=== PATIENT | female | born 1955 | race Caucasian/White ===

== ENCOUNTER → 2018-05-22 | Outpatient (CLI) | payer BC ==
--- NOTE | 2018-05-25 14:13 | RAD ---
DATE: May 22, 2018 EXAM: MAMMO BEATRIZ SCREENING BILATERAL HISTORY: Screening study. COMPARISON: March 14, 2015 performed at [facility] 2-D digital mammographic views of both breasts were performed in the CC and MLO projections. 3-D digital tomosynthesis images of both breasts were performed in the CC and MLO projections and reviewed on a computer workstation. This study was interpreted with the benefit of Computerized Aided Detection (CAD). FINDINGS: Breast Density: SCATTERED The breast parenchyma shows scattered fibroglandular densities. Breast parenchyma level B.. There are no dominant suspicious masses, suspicious microcalcifications or evidence of architectural distortion. Nodularity of both breasts is stable. IMPRESSION: No mammographic indicators for malignancy. BI-RADS CATEGORY: 2 BENIGN FINDING RECOMMENDED FOLLOW-UP: 12M 12 MONTH FOLLOW-UP PQRS compliance statement: Patient information was entered into a reminder system with a target due date May 23, 2019 for the next mammogram. Mammography is a sensitive method for finding small breast cancers, but it does not detect them all and is not a substitute for careful clinical examination. A negative mammogram does not negate a clinically suspicious finding and should not result in delay in biopsying a clinically suspicious abnormality. "Our facility is accredited by the [employer] Mammography Program." The patient's breast density may affect the ability of mammography to detect breast cancer. There are 4 categories of breast density, A, B, C and D. Breast density A means that most of the breast tissue is replaced with adipose tissue and therefore is not dense. Breast density B means that the breast tissue is mildly dense and scattered. Breast density C means that the breast tissue is heterogeneously dense. Breast density D means that the breast tissue is very dense. Breast densities especially C and D may decrease the sensitivity of mammography to detect breast cancer. Therefore, the patient may benefit from 3-D breast mammography (3D breast tomography) as a part of their screening mammogram. Insurance may or may not pay for this additional imaging. The patient's breast density based on today's mammogram is category B..
== END | disposition home or self-care (01) ==
LOC: MAMMO 09:40
PROVIDERS: ATTEND Physician Assistant Surgical
DX: Z12.31 Encounter for screening mammogram for malignant neoplasm of breast (principal)
CPT/HCPCS: 77063; 77067

== ENCOUNTER 2021-03-06 10:02 | Day surgery (SDC) | payer BC ==
[~2021-03-06] VITALS: Ht 167.6 cm; Wt 88.0 kg
[~2021-03-06 10:02] MED LIST: ATOR40TA59 PO; BUPIVACAINE MPF 0.25% 30 ML VIAL. ONE; CALC500T30 PO; CHOL500050 PO; CITA40TA6 PO; CYAN25008 PO; ESZO2TAB21 PO; FENO160T PO; GABA300C18 PO; HYDROmorphone 2 MG/ML VIAL IVP PRN; IV RINGERS,LACTATED 1000ML 1,000 ML IV SCH; LOSA100T14 PO; MORPHINE SULFATE 2 MG/ML INJ. IVP PRN; MULT-496 PO; OMEP40CA7 PO; PHEN37.53 PO; POTA-121 PO; PROCHLORPERAZINE 10 MG/2 ML VIAL. IVP PRN; TRIA1TAB5 PO; fentaNYL PF VIAL 100 MCG/2 ML VIAL IVP PRN
[2021-03-06 10:33] VITALS: BP 152/87
--- NOTE | 2021-03-06 10:34 | PDOC1 ---
History and Physical Date of Admission Date of Admission DATE: 03/06/21 TIME: 10:33 Identification/Chief Complaint Chief Complaint Right foot lateral bunion Source Source: Patient History of Present Illness History of Present Illness Ms Rizo is a 65yo female w/ PMHx HTN, HLD, GERD with strictures s/p esophageal dilation in 2017 who presents to outpatient surgery for right foot pain with bunion that has been bothersome. Here to have bunionectomy. No recent travel or sick contacts. No shortness of breath or chest pain. 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 She did fracture her right ankle earlier this year and had nonoperative treatment and has recovered well from that. Pfizer COVID 19 vaccines: 06/07/20, , and 12/31/20 Past Surgical History Past Surgical History: Hysterectomy (TAHBSO), Other (left foot pinning) Family History Family History reviewed Family History: No Significant Social History Smoke: No ALCOHOL: none Drugs: None Current Medications Current Medications Current Medications Fentanyl Citrate (Fentanyl 2ml Vial) 25 mcg PRN Q5MIN PRN IVP MILD PAIN 1-3; Start 03/06/21 at 06:00; Stop 03/06/21 at 20:00 Fentanyl Citrate (Fentanyl 2ml Vial) 50 mcg PRN Q5MIN PRN IVP MODERATE PAIN 4- 6; Start 03/06/21 at 06:00; Stop 03/06/21 at 20:00 Morphine Sulfate (Morphine Sulfate) 1 mg PRN Q10MIN PRN IVP SEVERE PAIN 7-10; Start 03/06/21 at 06:00; Stop 03/06/21 at 20:00 Ringer's Solution 1,000 ml @ 30 mls/hr Q24H IV ; Start 03/06/21 at 06:00; Stop 03/06/21 at 17:59 Hydromorphone HCl (Dilaudid) 0.5 mg PRN Q10MIN PRN IVP SEVERE PAIN 7-10, 2nd CHOICE; Start 03/06/21 at 06:00; Stop 03/06/21 at 20:00 Prochlorperazine Edisylate (Compazine) 5 mg PACU PRN PRN IVP NAUSEA, MRX1; Start 03/06/21 at 06:00; Stop 03/06/21 at 20:00 Cefazolin Sodium/ Dextrose 50 ml @ 100 mls/hr 1X PREOP PRN IV PRIOR TO PROCEDURE; Start 03/06/21 at 06:00; Stop 03/06/21 at 18:00 Bupivacaine HCl (Sensorcaine Mpf 0.25%) 30 ml STK-MED ONCE .ROUTE ; Start 03/06/21 at 09:26; Stop 03/06/21 at 09:27; Status DC Active Scripts Active Reported Vitamin B12 (Cyanocobalamin (Vitamin B-12)) 2,500 Mcg Tablet 2,500 Mcg PO DAILY Vitamin D3 (Cholecalciferol (Vitamin D3)) 1,250 Mcg Capsule 1,250 Mcg PO WEEKLY Phentermine Hcl 37.5 Mg Capsule 37.5 Mg PO DAILY Calcium (Calcium Carbonate) 500 Mg Tablet 500 Mg PO DAILY Daily Value (Multivitamin) 1 Each Tablet 1 Each PO DAILY Citalopram Hbr (Citalopram Hydrobromide) 40 Mg Tablet 40 Mg PO DAILY Triamterene-Hctz 75-50 Mg Tab (Triamterene/Hydrochlorothiazid) 1 Each Tablet 1 Tab PO DAILY Atorvastatin Calcium 40 Mg Tablet 40 Mg PO HS Losartan Potassium 100 Mg Tablet 100 Mg PO DAILY Klor-Con M20 (Potassium Chloride) 20 Meq Tab.er.prt 20 Meq PO DAILY Fenofibrate 160 Mg Tablet 160 Mg PO DAILY Omeprazole 40 Mg Capsule.dr 40 Mg PO PRN PRN Gabapentin (Gabapentin) 300 Mg Capsule 300 Mg PO TID Lunesta (Eszopiclone) 2 Mg Tablet 2 Mg PO HS PRN Allergies Allergies: Coded Allergies: No Known Drug Allergies (Unverified , 03/06/21) ROS General: No: Chills, Night Sweats, Fatigue, Malaise, Appetite, Other PSYCHOLOGICAL ROS: No: Anxiety, Behavioral Disorder, Concentration difficultie, Decreased libido, Depression, Disorientation, Hallucinations, Hostility, Irritablity, Memory difficulties, Mood Swings, Obsessive thoughts, Physical abuse, Sexual abuse, Sleep disturbances, Suicidal ideation, Other Eyes: No Blurry vision, No Decreased vision, No Double vision, No Dry eyes, No Excessive tearing, No Eye Pain, No Itchy Eyes, No Loss of vision, No Photophobia, No Scotomata, No Uses contacts, No Uses glasses, No Other HEENT: No: Heacaches, Visual Changes, Hearing change, Nasal congestion, Nasal discharge, Oral lesions, Sinus pain, Sore Throat, Epistaxis, Sneezing, Snoring, Tinnitus, Vertigo, Vocal changes, Other ALLERGY AND IMMUNOLOGY: No: Hives, Insect Bite Sensitivity, Itchy/Watery Eyes, Nasal Congestion, Post Nasal Drip, Seasonal Allergies, Other Hematological and Lymphatic: No: Bleeding Problems, Blood Clots, Blood Transfusions, Brusing, Night Sweats, Pallor, Swollen Lymph Nodes, Other ENDOCRINE: No: Breast Changes, Galactorrhea, Hair Pattern Changes, Hot Flashes, Malaise/lethargy, Mood Swings, Palpitations, Polydipsia/polyuria, Skin Changes, Temperature Intolerance, Unexpected Weight Changes, Other Breast: No New/Changing Breast Lumps, No Nipple changes, No Nipple discharge, No Other Respiratory: No: Cough, Hemoptysis, Orthopnea, Pleuritic Pain, Shortness of breath, SOB with excertion, Sputum Changes, Stridor, Tachypnea, Wheezing, Other Cardiovascular: No Chest Pain, No Palpitations, No Orthopnea, No Paroxysmal Noc. Dyspnea, No Edema, No Lt Headedness, No Other Gastrointestinal: No Nausea, No Vomiting, No Abdominal Pain, No Diarrhea, No Constipation, No Melena, No Hematochezia, No Other Genitourinary: No Dysuria, No Frequency, No Incontinence, No Hematuria, No Retention, No Discharge, No Urgency, No Pain, No Flank Pain, No Other, No , No , No , No , No , No , No Musculoskeletal: Yes Joint Pain, Yes Joint Stiffness; No Gait Disturbance, No Joint Swelling, No Muscle Pain, No Muscular Weakness, No Pain In:, No Swelling In:, No Other Neurological: No Behavorial Changes, No Bowel/Bladder ControlChng, No Confusion, No Dizziness, No Gait Disturbance, No Headaches, No Impaired Coord/balance, No Memory Loss, No Numbness/Tingling, No Seizures, No Speech Problems, No Tremors, No Visual Changes, No Weakness, No Other Skin: No Dry Skin, No Eczema, No Hair Changes, No Lumps, No Mole Changes, No Mottling, No Nail Changes, No Pruritus, No Rash, No Skin Lesion Changes, No Other, No Acne Physical Exam General: Alert, Oriented X3, Cooperative, No acute distress HEENT: Atraumatic, PERRLA, EOMI, Mucous membr. moist/pink Lungs: Clear to auscultation, Normal air movement Heart: S1S2, RRR, no thrills, no rubs, no gallops, no murmurs Abdomen: Normal bowel sounds, Soft, No tenderness, No hepatosplenomegaly, No masses Extremities: No clubbing, No cyanosis, No edema, Normal pulses, Other (right lateral foot swelling, pain) Skin: No rashes, No breakdown, No significant lesion Neuro: Normal gait, Normal speech, Strength at 5/5 X4 ext, Normal tone, Sensation intact, Cranial nerves 3-12 NL, Reflexes 2+ Psych/Mental Status: Mental status NL, Mood NL VTE Prophylaxis Ordered VTE Prophylaxis Devices: No VTE Pharmacological Prophylaxi: No Assessment/Plan Assessment/Plan A/P: Right foot bunion - no further testing for low risk surgery HTN - cont home meds HLD - cont statin GERD - cont prn ppi leg cramps - prn gabapentin FEN - NPO PPX - SCDs FULL CODE Dispo- no further testing prior to outpatient surgery Justifications for Admission Other Justification AL HUMPHREY MD Mar 06, 2021 10:34
[2021-03-06] MEDS ORDERED: SCOPOLAMINE 1.5MG PATCH. TD ONE (10:45)
[2021-03-06] MEDS ORDERED: LIDOCAINE 1% PF 5 ML VIAL. ONE (12:36)
[2021-03-06] MEDS ORDERED: PROPOFOL 10 MG/ML (20ML) VIAL. IV ONE (12:36)
[2021-03-06] MEDS ORDERED: GLYCOPYRROLATE 1 MG/5 ML VIAL. ONE (12:37)
[2021-03-06] MEDS ORDERED: PHENYLEPHRINE in 0.9% NACL PF 1 MG/10 ML SYRINGE. IV ONE (12:37)
[2021-03-06] MEDS ORDERED: ONDANSETRON PF 4 MG/2 ML VIAL. ONE (12:37)
[2021-03-06] MEDS ORDERED: ePHEDrine PF IN SALINE 50 MG/10 ML SYRINGE. IV ONE (12:37)
[2021-03-06] MEDS ORDERED: DEXAMETHASONE SOD PHOS 4 MG/ML VIAL ONE (12:37)
--- NOTE | 2021-03-06 13:23 | PDOC4 ---
OPERATIVE NOTE Date: Date: Mar 06, 2021 Pre-Op Diagnosis: Right tailor's bunion Post-Op Diagnosis: Right tailor's bunion, inflammatory bursa at the lateral aspect of the fifth MTPJ likely stemmed from the abductor digiti minimi Procedure Performed: Right soft tissue mass excision, pathology study Right reverse Jose Ramon osteotomy at the fifth metatarsal head, medial fifth MTPJ capsulotomy Surgeon: Penny Wu DPM Anesthesia Type: LMA augmented with local anesthesia Blood Loss: 5 cc Specimans Obtained: Right lateral fifth MTPJ soft tissue mass Findings: Soft tissue mass to the lateral fifth MTPJ extended from the abductor digit minimi. There was no fluid collection within the mass. The soft tissue mass was extracapsular. Complications: None Operative Note: Under mild sedation, patient was brought into the operating room and placed on the operating table in the supine position. A formal timeout was performed to confirm patient's identity, procedure and procedure site. Following pr eoperative IV antibiotics, general anesthesia induction, a well-padded high ankle tourniquet was placed to the right lower extremity. 10 cc of 0.25% Marcaine plain was infiltrated to the right fifth ray. The right lower extremity was then scrubbed, prepped and draped using standard aseptic techniques. The right lower extremity was exsanguinated and tourniquet was inflated to 250 millimercury. A linear incision was made over the dorsal lateral aspect of the fifth metatarsal head. The dissection was carried deep using sharp and blunt dissection with care to protect and retract all the neurovascular bundles. At this time, we noticed a well encapsulated soft tissue mass at the dorsal lateral aspect of the fifth MTPJ as an extension of the abductor digit minimi. The soft tissue mass did not have any fluid content and it was noted extracapsular. The soft tissue mass was carefully dissected while preserving the abductor digit minimi and the underlying capsule. The soft tissue mass was sent for pathology. Then a linear capsulotomy was made over the fifth MTPJ. The periosteum was carefully and minimally elevated to expose the fifth metatarsal head laterally and dorsally. A sagittal saw was used to resect the eminence. Then a guidewire was placed at the center of the fifth metatarsal head aiming slightly dorsal and proximal at the lateral aspect. At this time, the distal fifth metatarsal was noted slightly soft bone quality. Intraoperative x-ray remarked adequate and satisfactory pin placement. Then a sagittal saw was used to complete the modified Jose Ramon osteotomy with a long plantar arm parallel to the weightbearing surface and then a short vertical dorsal arm. The distal fragment was mobilized easily and shifted medially by 3 mm. The fragment was temporarily fixed with a towel clamp and a 0.45 inch K wire. Intraoperative x-ray remarked adequate fragment displacement, apposition of the osteotomy and reduction of the IM angle. Then using standard AO technique, a 2.7mm partially-threaded, solid screw was placed from dorsal proximal to distal plantar aiming the plantar fifth metatarsal head decreased. Adequate osseous compression and hardware purchase was noted. Intraoperative x-ray remarked adequate IM angle reduction, position and length of the 2.7 millimeter screw. A [place] Ak blade was used to release and perform the capsulotomy at the medial fifth MTPJ from lateral incision to aid in reduction and correction of the adductovarus deformity. Then the surgical site was irrigated with copious saline solution. The redundant lateral capsule was resected out and tightened to reduce the fifth digit position using 4.0 Vicryl. The skin was closed in layers with 4-0 Monocryl 4-0 nylon. The surgical site was dressed with Xeroform, 4 x 4 gauze, Kerlix. The right lower extremity was immobilized in a well-padded Romero compression splint with ankle held in near 90 degrees. Tourniquet was deflated and adequate digital perfusion was noted. Patient tolerated the procedure and anesthesia well with vital signs stable and neurovascular status intact. She will recover at PACU. Pending right foot 3 view x-ray. PENNY WU DPM Mar 06, 2021 13:23
[2021-03-06] MEDS ORDERED: ACETAMINOPHEN 325 MG TABLET. PO ONE (13:30)
[2021-03-06] MEDS ORDERED: oxyCODONE/APAP 5/325 1 TAB TABLET PO ONE (13:30)
[2021-03-06] MEDS ORDERED: GABAPENTIN 100 MG CAPSULE. PO ONE (13:30)
[2021-03-06] MEDS ORDERED: ASPI-886 PO (13:40)
[2021-03-06] MEDS ORDERED: TRAM50TA PO (13:41)
[2021-03-06 14:00] VITALS: BP 144/74
--- NOTE | 2021-03-07 10:39 | RAD ---
EXAM: XR FOOT_RIGHT 3 VIEWS 03/06/2021 1:35 PM CLINICAL INDICATION: PACU, post op COMPARISON: Radiograph 02/15/2021 TECHNIQUE: 3 views of the right foot FINDINGS: A splint obscures detail. There has been interval osteotomy of the fifth metatarsal head. No definite acute fracture. Alignment is normal. Mild degenerative joint disease at great toe MTP amauri nt and talonavicular joint. IMPRESSION: Surgical changes of fifth metatarsal osteotomy. Electronically signed by: Fátima Awad MD (03/07/2021 10:36 AM) [id number]
--- NOTE | 2021-03-08 19:08 | PATHOLOGY ---
[facility] Accession Number: [id number] . 01 Material submitted: . foot - SOFT TISSUE RT FOOT. Modifiers: right . 01 Clinical history: . ZEINAB'S BUNION RT FOOT R FIFTH METATARSAL EXCISION SOFT TISSUE MASS EXCISION . 02 Diagnosis: Soft tissue "mass right foot", excision: - Tenosynovium with reactive/cystic degenerative features, suggestive of ganglion cyst. - Negative for malignancy. . (MLK:mml; 03/08/2021) [facility] 03/08/2021 1847 Local . 02 Electronically signed: . Taryn Godfrey MD, Pathologist NPI- [id number] . 01 Gross description: . The specimen is received in formalin, labeled "Rizo Mikaela, soft tissue mass". The source is additionally listed on the requisition as "soft tissue mass right foot". Received is a segment of pale castillo-yellow to light cartagena tissue measuring 2.3 x 1.1 x 0.3 cm. Sectioning reveals a possible cystic structure filled with dark castillo-pink friable material. The specimen is serially sectioned and submitted representatively in cassette A1.([facility]; 03/07/2021) [facility] 03/07/2021 1027 Local . 02 Pathologist provided ICD-10: M67.971, M21.611 . 02 CPT . 552630 Specimen Comment: A courtesy copy of this report has been sent to [phone] Specimen Comment: Report sent to Performed at: 01 [facility] [address], [place], [place] [id number] MD Aleks Abernathy MD Phone: [phone] Performed at: 02 [facility] [address], [place] [id number] MD Barry Tolentino MD Phone: [phone]
== END 2021-03-06 14:45 | disposition home or self-care (01) ==
LOC: SURG 10:02
PROVIDERS: ATTEND Podiatrist
DX: M21.621 Bunionette of right foot (principal); M20.5X1 Other deformities of toe(s) (acquired), right foot; I10 Essential (primary) hypertension; E78.00 Pure hypercholesterolemia, unspecified; K21.9 Gastro-esophageal reflux disease without esophagitis; M19.90 Unspecified osteoarthritis, unspecified site; F32.9 Major depressive disorder, single episode, unspecified; Z79.82 Long term (current) use of aspirin; Z79.899 Other long term (current) drug therapy; Z90.710 Acquired absence of both cervix and uterus; Z98.51 Tubal ligation status; Z98.890 Other specified postprocedural states; Z72.89 Other problems related to lifestyle
CPT/HCPCS: 28296; 73630; A4930; A6253; A6402; C1713; J0690; J1100; J2370; J2405; J2704; J3490; 88305; A4657